=== PATIENT | female | born 1975 | race Caucasian/White ===

== ENCOUNTER 2025-06-22 14:40 | Outpatient (CLI) | payer MEDICAID ==
[~2025-06-22 14:40] MED LIST: iohexol 300mg/ml 100ml inj. ONE
--- NOTE | 2025-06-22 15:43 | RADIOLOGY REPORT ---
History: OTH NONINFLAMMATORY DISORD OF OVARY, FALLOP AND BROAD LIGMT Comparison Study: None TECHNIQUE: Multidetector spiral CT of the pelvis was performed from iliac crests to pubic symphysis. 100 cc of intravenous contrast was administered during this examination. Portal venous imaging was obtained. Axial, coronal and sagittal multiplanar reformats were performed by the technologist on a separate workstation. Radiation Dose : CT Dose: CTDI volume is 34 mGy. Dose-length product is 1052 mGy*cm FINDINGS: Visualized bowel: Small bowel and colon are normal in caliber and distribution. The appendix is not visualized; however, no secondary findings of acute appendicitis identified. Ascites: Absent Lymphadenopathy: No pelvic or mesenteric lymphadenopathy. Pelvis Wall and Mesentery: Unremarkable. Vasculature: The visualized abdominal aorta is normal in size and caliber. Abdominal and pelvic vessels demonstrate normal enhancement. Pelvic Organs: Uterus is slightly anteverted with a bulbous fundus suggesting fibroids. There is a 2.1 cm cyst in the right ovary. There may be partial rupture of the cyst. There is trace free fluid in the cul-de-sac Musculoskeletal: No aggressive focal bony lesions, acute fractures or dislocation. Bladder: Unremarkable IMPRESSION: 1. No acute pelvic finding. Question of uterine fibroids and of an involuting right ovarian cyst. Trace free fluid. 2. Recommend MRI pelvis for better visualization of the pelvic organs
== END 2025-06-22 23:59 | disposition home or self-care (01) ==
LOC: RAD 14:40
PROVIDERS: ATTEND Physician Assistant Medical
DX: N83.201 Unspecified ovarian cyst, right side (principal); R10.20 Pelvic and perineal pain unspecified side; N83.8 Other noninflammatory disorders of ovary, fallopian tube and broad ligament
CPT/HCPCS: 72193; Q9967